=== PATIENT | male | born 1970 | race Caucasian/White ===

== ENCOUNTER 2025-03-21 10:24 | Day surgery (SDC) | payer OTHER, SELFPAY ==
[2025-03-21] VITALS (14 sets, daily range): BP systolic 132–151; BP diastolic 92–107; BMI 40.2
[2025-03-21 11:16] LABS: Glucose - Point of Care 145 mg/dl (70-99)
--- NOTE | 2025-03-21 18:56 | ITS.CL.PN ---
[facility] - Procedure Note
Procedure
Procedure Note:
CARDIAC CATHETERIZATION REPORT
Date of Procedure: 03/21/2025
Referring: Dr. Jesus Hilliard DO
Indication: Positive nuclear stress test
PROCEDURE(S)
1. left heart catheterization
2. coronary angiography
ACCESS: 6F right radial artery (closure: radial band)
CATHETERS
1. 6F AR1
2. 6F JL4
MODERATE SEDATION: 30 minutes of moderate sedation was utilized. An independent medical territory manager was present to assist with and help manage the patient's level of consciousness and physiologic status.
HEMODYNAMIC DATA
LV 122/9 (EDP 13) mmHg
AO 136/78 (mean 101) mmHg
CORONARY ANGIOGRAPHY
Dominance: right
LM: Large, normal
LAD: Large vessel giving rise to a large D1, moderate caliber D2, and moderate caliber D3. There is mild nonobstructive disease.
LCx: Large vessel giving rise to a small OM1, small OM2, large OM3, and small LPL branch. There is mild nonobstructive disease.
RCA: Large vessel giving rise to a large RPDA, moderate caliber RPL1, small RPL2, and moderate caliber RPL3. There is mild nonobstructive disease.
RADIATION: dose 647 mGy; DAP 34.4 Gy*cm2; fluoroscopy time 11.4 min
CONCLUSIONS
1. Nonobstructive coronary artery disease in a right dominant system
2. Normal LV filling pressure and no aortic stenosis on hemodynamic pullback
RECOMMENDATIONS
1. Continued primary prevention of CAD
Copy to: Dr. Jesus Hilliard DO (product marketing director); Dr. Andrew Shah DO (PCP)
Signed: Joe Child MD, PhD
== END 2025-03-21 15:10 | disposition home or self-care (01) ==
LOC: CATH 10:24
PROVIDERS: ATTENDING PHYSICIAN Student in an Organized Health Care Education/Training Program; FAMILY PHYSICIAN Family Medicine; OTHER PHYSICIAN Student in an Organized Health Care Education/Training Program
DX: I25.10 Atherosclerotic heart disease of native coronary artery without angina pectoris (principal); Z79.899 Other long term (current) drug therapy; Z79.84 Long term (current) use of oral hypoglycemic drugs; Z79.85 Long-term (current) use of injectable non-insulin antidiabetic drugs; R94.39 Abnormal result of other cardiovascular function study
CPT/HCPCS: 99152; 99153; 82962; 93458; C1894; Q9967